=== PATIENT | male | born 1970 | race Caucasian/White ===

== ENCOUNTER 2021-06-20 07:55 | Outpatient (RCR) | payer OTHER | END 2021-07-21 | disposition home or self-care (01) | LOC: ONC 07:55 | PROVIDERS: ATTEND Radiology Radiation Oncology | DX: C20 Malignant neoplasm of rectum (principal) | CPT/HCPCS: 77300; 77301; 77334; 77336; 77338; 77386; 77470; 99204 ==

== ENCOUNTER 2021-10-17 09:11 | Outpatient (RCR) | payer OTHER | END 2021-10-31 | disposition home or self-care (01) | LOC: ONC 09:11 | PROVIDERS: ATTEND Radiology Radiation Oncology | DX: C20 Malignant neoplasm of rectum (principal) | CPT/HCPCS: 99213 ==